=== PATIENT | female | born 2005 | race Two or more races ===

== ENCOUNTER 2025-04-26 15:53 | Emergency (ER) | payer SELFPAY ==
--- NOTE | 2025-04-26 16:30 | PC.NURSE ---
CALLED FOR PT FROM LOBBY/OUTSIDE, NO ANSWERX1 @ [phone]
--- NOTE | 2025-04-26 16:47 | XR_ITS ---
EXAMINATION: US OB <= 14 weeks fetus ORDERING PROVIDER: JORGE Canchola HISTORY: vaginal bleeding TECHNIQUE: Multiplanar still ultrasonography of the pelvis was performed using grayscale imaging, supplemented by color and spectral Doppler as needed. Images were performed transabdominally. COMPARISON: None. FINDINGS: Last menstrual period 03/15/2025. Beta-hCG pending. Uterus 7.6 x 3.9 x 4.8 cm. Endometrium measures 1.4 cm. Toward the fundus is a 0.5 x 0.3 x 0.5 cm hypoechoic round fluid density with subtle internal echogenicities. No pole is seen. No yolk sac is identified. Mean sac diameter 0.44 cm. Right ovary measures 2.7 x 1.8 x 2.3 cm and demonstrates color and spectral flow. Left ovary measures 2.5 x 1.4 x 2.2 cm with color and spectral flow. No fluid is identified in the cul-de-sac. Clinical dates 6 weeks 0 days. Sonographic dates 5 weeks 1 day. IMPRESSION: Nonspecific fluid collection in the uterine fundus probably represents a gestational sac with yolk sac and pole not yet visible. If it does, then clinical and sonographic dates are concordant. Close clinical and imaging follow-up is recommended as other processes such as nonvisualized ectopic and failed intrauterine cannot be completely excluded at this time.
--- NOTE | 2025-04-26 16:47 | PD.EDRME ---
Rapid Medical Screening Exam E Arrival date/time: 04/26/25 15:53 20-year-old female with no known medical history presents to the emergency room with a chief complaint of vaginal spotting x 2 days. Patient is currently 5 weeks I have greeted and performed a focused initial assessment of this patient. A comprehensive ED assessment and evaluation of the patient, analysis of all test results, and completion of the medical decision making process will be conducted by additional ED providers. Chief Complaint: Vaginal Bleeding Vital signs reviewed by provider: Yes Exam: Lower abdominal cramping Clear bilateral lung sounds Clinical Impression: Vaginal bleed/subchorionic hemorrhage/threatened
[2025-04-26 16:48] VITALS: BP 142/74; PULSE 100; RESP 18; TEMP 36.9; O2SAT 99; BMI 16.4
[2025-04-26 17:48] LABS: Collection Type, Urine Clean Catch
[2025-04-26 17:51] LABS: Basophils # (Auto) 0.1 Thou/mm3 (0.0-0.2); Basophils % (Auto) 1 % (0-2.5); Eosinophils # (Auto) 0.0 Thou/mm3 (0.0-0.5); Eosinophils % (Auto) 0 % (0-10); Hematocrit 36.2 % (36.0-46.0); Hemoglobin 11.5 g/dL (12.0-16.0); Immature Granulocytes Auto 0.04 Thou/mm3 (0.00-0.00); Lymphocytes # (Auto) 1.8 Thou/mm3 (1.0-4.8); Lymphocytes % (Auto) 19 % (10-50); Mean Corpuscular HGB Conc 31.8 g/dl (31.0-37.0); Mean Corpuscular Hemoglobin 25.4 pg (25.0-35.0); Mean Corpuscular Volume 80 fL (80-100); Monocytes # (Auto) 1.1 Thou/mm3 (0.0-0.8); Monocytes % (Auto) 11 % (0-12); Neutrophils # (Auto) 6.9 Thou/mm3 (1.8-7.7); Neutrophils % (Auto) 69 % (37-80); Nucleated Red Blood Cell # 0.00 Thou/mm3 (0.00-0.00); Nucleated Red Blood Cell % 0 /100 WBC (0); Platelet Count 412 Thou/mm3 (140-440); RDW Standard Deviation 50.3 fL (36.4-46.3); Red Blood Count 4.53 Miln/mm3 (4.00-5.20); White Blood Count 10.0 Thou/mm3 (4.5-11.0)
[2025-04-26 18:05] LABS: Amorphous Crystals,Urine Present (Absent); Bacteria,Urine 2+; Bilirubin,Urine Negative (Negative); Blood,Urine 1+ (Negative); Clarity,Urine Turbid (Clear/Hazy); Color,Urine Yellow (Lt Yel-Yel); Glucose, Urine Negative (Negative); Ketones,Urine 2+ (Negative); Leukocyte Esterase,Urine Positive (Negative); Nitrite,Urine Positive (Negative); PH,Urine 6.0 (5.0-7.0); Protein,Urine 1+ (Neg - Trace); RBC,Urine 3 /hpf (0-3); Specific Gravity,Urine 1.027 (1.001-1.035); Squamous Epithelial Cell,Urine 10 /hpf (0-5); Urobilinogen,Urine Negative mg/dL (0.0-1.0); WBC,Urine 9 /hpf (0-5)
[2025-04-26 18:12] LABS: Alanine Aminotransferase 13 U/L (10-49); Albumin, Serum 5.2 gm/dL (3.5-5.0); Albumin/Globulin Ratio 1.9 (1.2-2.2); Alkaline Phosphatase 64 U/L (46-116); Anion Gap 15 (7-16); Aspartate Amino Transferase 26 U/L (0-34); BUN/Creatinine Ratio 10 Ratio (12-20); Bilirubin,Total 0.6 mg/dL (0.3-1.2); Blood Urea Nitrogen 7 mg/dL (9-23); Calcium 10.3 mg/dL (8.3-10.6); Calcium (Corrected) 10.3 mg/dL (8.5-10.1); Carbon Dioxide 19.9 mMol/L (20.0-31.0); Chloride 104 mMol/L (98-107); Creatinine (Component) 0.7 mg/dL (0.6-1.3); Estimated Creatinine Clearance 79.9 mL/min (>60); Globulin 2.8 gm/dL (2.3-3.5); Glucose 102 mg/dL (74-106); Osmolality,Calculated 275 (275-295); Potassium 4.1 mMol/L (3.4-5.1); Sodium 139 mMol/L (136-145); Total Protein 8.0 gm/dL (5.7-8.2); eGFR > 60 See Note
[2025-04-26 18:22] LABS: Beta HCG,Quantitative 3208 mIU/mL (<5.0)
[2025-04-26 20:10] VITALS: BP 137/87; PULSE 103; RESP 18; TEMP 36.8; O2SAT 97
--- NOTE | 2025-04-26 20:21 | PD.EDADULT ---
ED General RME/HPI General Chief complaint: Vaginal Bleeding Stated complaint: VAG BLEEDING, DYSURIA Time Seen by Provider: 04/26/25 18:31 Arrival date/time: 04/26/25 15:53 CC: Vaginal bleeding with small clots HPI onset approximately 6 hours ago. Patient is a G1, P0 estimated at 5 weeks with vaginal spotting denies lower abdominal cramping or lower abdominal low back pain. No other complaints RME / HPI RME / HPI narrative: 04/26/25 15:53 20-year-old female with no known medical history presents to the emergency room with a chief complaint of vaginal spotting x 2 days. Patient is currently 5 weeks I have greeted and performed a focused initial assessment of this patient. A comprehensive ED assessment and evaluation of the patient, analysis of all test results, and completion of the medical decision making process will be conducted by additional ED providers. Exam: Lower abdominal cramping Clear bilateral lung sounds Impression: Vaginal bleed/subchorionic hemorrhage/threatened Related Data Previous Rx's ?Medication ?Instructions ?Recorded cephalexin 500 mg capsule 500 mg PO BID #14 caps 04/26/25 Allergies Allergy/AdvReac Type Severity Reaction Status Date / Time NKA* Allergy Uncoded 02/12/11 11:12 Review of Systems Review of Systems Narrative Review of Systems: GEN: No fever, no chills, no weight loss EYES: No discharge, no visual changes, no pain HEENT: No ear pain, no congestion, no sore throat PULM: No shortness of breath, no cough, no congestion CV: No chest pain, no dyspnea on exertion, no palpitations GI: No nausea, no vomiting, no diarrhea, no pain, no constipation : No frequency, no urgency, no dysuria MUSC/SKEL: No joint pain, no back pain SKIN: No rash PSYCH: No hallucinations, no depression HEME/LYMPH: No easy bleeding or bruising tendencies NEURO: No weakness, no headache Past Medical History Social History SMOKING STATUS: Never smoker ED Exam Narrative Physical exam: [General: Thin but not emaciated anxious but not in any acute distress Head normocephalic HEENT: Within acceptable limits Neck is supple nontender Chest equal chest rise nontender to palpation Respiratory: Clear to auscultation no wheezes crackles or rubs CV: Rate rhythm is regular no murmurs rubs or clicks Abdomen is soft nontender no masses positive bowel sounds all 4 quadrants Back: No CVA tenderness no spinous process tenderness from cervical spine thoracic and lumbar spine Skin: Intact no petechiae rash induration ulceration or crepitus Extremities: Moving all extremity against resistance cap refill less than 2 seconds neurosensory intact Neuro: Awake alert oriented x3 Glascow coma 15 no focal deficits] Course Quality Measures none Orders Category Date Time Status US OB <= 14 weeks fetus Stat Exams 04/26/25 16:47 Completed ABO/RH Type Stat Lab 04/26/25 17:29 Completed Beta HCG,Quantitative Stat Lab 04/26/25 17:29 Completed CBC Stat Lab 04/26/25 17:29 Completed CMP [Comprehensive Metabolic Panel] Stat Lab 04/26/25 17:29 Completed UA [Urinalysis] Stat Lab 04/26/25 17:27 Completed Vital Signs Vital signs: Vital Signs Temperature 98.5 F 04/26/25 16:48 Pulse Rate 100 04/26/25 16:48 Respiratory Rate 18 04/26/25 16:48 Blood Pressure 142/74 H 04/26/25 16:48 Pulse Oximetry (%) 99 04/26/25 16:48 Oxygen Delivery Method Room Air 04/26/25 16:48 Discharge Plan Plan Patient Disposition: HOME (Self Care) Patient condition on transfer: Stable Prescriptions/Referrals Prescriptions/Med Rec: New cephalexin 500 mg capsule 500 mg PO BID Qty: 14 0RF Referrals: Sandeep Al MD [Physician, Family Practice] - In 1 week No Primary/Family,Physician [Primary Care Provider] - In 1 week Problem List Clinical Impression: Threatened miscarriage, UTI (urinary tract infection) Patient/Caregiver Discharge Instructions Education Materials: ED Possible Miscarriage ..., ED CYSTITIS Female Adult Additional Instructions: Return in 1 week for repeat ultrasound. Print Language: [place] Stand Alone Forms: Hanh Award Info., Work/School Release, Patient Portal Info Letter PA/JORGE Supervising Physician ZHEN/JORGE Supervising Physician: Srikanth Vu ENP [facility] Clinical Information Provided by: patient Medical Records reviewed [facility] Meds/Rx considered, not ordered None Labs/Rad/Tests considered, not ordered None Chronic Illness/Social Conditions which may negatively complicate care or outcome(s)-explain: None or not applicable EKG EKG not done Labs Labs: interpreted by la Lab(s) Interpretation(s): CBC shows no acute leukocytosis anemia thrombocytopenia CMP shows CO2 of 19.9 BUN is 7 no other electrolyte imbalances renal impairment transaminitis or T. bili elevation Urine is turbid 1+ protein 2+ ketones 1+ blood leukocyte esterase positive nitrite -9 WBCs 10 squamous epithelia 2+ bacteria. Blood type O+ Quantitative hCG at 3208. Imaging Imaging interpretation: interpreted by me Imaging Interpretation(s): Single gestational sac no pole. Indeterminate size base 5 weeks and 3 days.
== END 2025-04-26 20:32 | disposition home or self-care (01) ==
PROVIDERS: Nurse Practitioner Family; Emergency Provider Emergency Medicine
DX: O20.0 Threatened abortion (principal); O23.41 Unspecified infection of urinary tract in pregnancy, first trimester; N39.0 Urinary tract infection, site not specified; Z3A.01 Less than 8 weeks gestation of pregnancy
CPT/HCPCS: 36415; 76801; 80053; 81001; 84702; 85025; 86900; 86901; 99283